=== PATIENT | male | born 1985 | race Caucasian/White ===

== ENCOUNTER 2018-07-05 11:17 | Observation (INO) ==
[~2018-07-05 11:17] MED LIST: LIDOCAINE W/ SODIUM BICARB 0.5 ML SYR ONE; LIDOCAINE W/ SODIUM BICARB 0.5 ML SYR SUBD ONE; Lactated Ringers 1,000 ML PRIMARY IV ONE; Nasal Sanitizer POPSWAB ampule 3 AMP (Nozin) PREOP DOSE ENOS SCH; ceFAZolin Inj 2gm (Premix) 2 GM/50 ML BAG IV ONE
[2018-07-05] MEDS: Lactated Ringers 1,000 ML PRIMARY IV SCH ×2 (11:37→19:18)
[2018-07-05] MEDS ORDERED: KETOROLAC 30 MG/1 ML VIAL ONE ×3 (11:59→16:31)
[2018-07-05] MEDS ORDERED: LIDOCAINE MPF 2% - 5 ML (20 MG/1 ML) ONE (11:59)
[2018-07-05] MEDS ORDERED: PROPOFOL 10 MG/1 ML (200 MG/20 ML) VIAL IV ONE ×2 (11:59→13:18)
[2018-07-05] MEDS ORDERED: LIDOCAINE W/ SODIUM BICARB 0.5 ML SYR ONE (12:00)
[2018-07-05] MEDS ORDERED: fentaNYL Inj 250 MCG/5 ML VIAL ONE (12:00)
[2018-07-05] MEDS ORDERED: Acetaminophen 1000mg Inj 1,000 MG/100 ML VIAL IV ONE (12:00)
[2018-07-05] MEDS ORDERED: DEXAMETHASONE PF 10 MG/1 ML VIAL ONE (12:00)
[2018-07-05] MEDS ORDERED: FAMOTIDINE 20 MG/2 ML VIAL IVP ONE (12:00)
[2018-07-05] MEDS ORDERED: MIDAZOLAM 5 MG/1 ML ONE (12:00)
[2018-07-05] MEDS ORDERED: LIDOCAINE 2%/ EPI 1:200,000 - 20 ML VIAL ONE (12:05)
[2018-07-05] MEDS ORDERED: BUPIVACAINE 0.5% W/ EPI - 10 ML VIAL ONE (12:05)
[2018-07-05] MEDS ORDERED: ROCURONIUM 10 MG/1 ML - 5 ML VIAL IVP ONE (12:06)
[2018-07-05] MEDS ORDERED: fentaNYL Inj 100 MCG/2 ML VIAL ONE (12:50)
[2018-07-05] MEDS ORDERED: HYDROmorphone 2 MG/1 ML ONE ×2 (13:16→17:18)
--- NOTE | 2018-07-05 13:28 | CRNA.PROCE ---
Nerve Block Documentation - - Safety Measures: Time Out Taken, Site Verified - - Type of Nerve Block Used: Left Adductor Canal Nerve Block (For post op analgesia) Position for Nerve Block: Supine Moniters Used During Block: EKG, SPO2, NIBP Oxygen Supplemented: Yes Sedation Used - Enter Amount in Comment Field [ANES.SEDAT]: Midazolam (mg): Yes (2), Fentanyl (mcg): Yes (100) Skin Prep Used: ChloroPrep Nerve Block Needle Used: EchoBright 100 mm Local Anesthetic - Enter Amt in Comment Field [ANES.LOCNB]: 0.5 % Bupivicaine with Epinephrine 1:200,000 (mL): Yes (20), 2 % Xylocaine with Epinephrine 1:200,000 (mL): Yes (20) - - PreOp Block : Time In: 12:30 PreOp Block : Time Out: 12:40
[2018-07-05] MEDS ORDERED: Lactated Ringers 1,000 ML PRIMARY IV ONE ×2 (15:09→17:40)
[2018-07-05] MEDS ORDERED: Sodium Chloride 0.9% vial 20 ML ONE (15:09)
[2018-07-05] MEDS ORDERED: REMIFENTANIL 1 MG/1 ML IV ONE (15:09)
[2018-07-05] MEDS ORDERED: TRANEXAMIC ACID 1,000 MG / 10 ML VIAL ONE (15:24)
[2018-07-05] MEDS ORDERED: BUPivacaine Liposome/PF (Exparel) Inj 20ml vial INFIL ONE (16:29)
[2018-07-05] MEDS ORDERED: BUPivacaine Inj 0.25% PF - 10ml vial ONE (16:29)
[2018-07-05] MEDS ORDERED: ceFAZolin 1 GM VIAL ONE (16:50)
[2018-07-05] MEDS ORDERED: ceFAZolin Inj 1 GM in Sodium Chloride 0.9% 100 ML IV ONE (16:52)
[2018-07-05] MEDS ORDERED: DIAZEPAM 10 MG/2 ML (5 MG/1 ML) CARPUJECT ONE (17:20)
--- NOTE | 2018-07-05 17:23 | ORTHO.OP ---
Surgery Date: 07/05/18 Preoperative Diagnosis: Patella tendon rupture left knee Postoperative Diagnosis: Same Procedure: Repair left patellar tendon rupture, augmentation with hamstring autograft Surgeon: Armond King MD Embedded Systems Software Developer: ROSENDO [place] Anesthesia Provider: Echo So CRNA Anesthesia Type: General, Regional Estimated Blood Loss (mL): 20 Fluids: 1600 mL crystalloid. Complications: None. Total tourniquet time 119 minutes. Operative Summary: Extubated awakened and taken recovery room in stable condition.
--- NOTE | 2018-07-05 17:46 | CRNA.PROGR ---
Anesthesia Time - Procedure/Recovery Time Start Date: 07/05/18 Anesthesia : Time In: 12:52 Anesthesia : Time Out: 17:23 - Block Time PreOp Block : Time In: 12:30 PreOp Block : Time Out: 12:40 - Other Weight: 93.44 kg Height: 6 ft Body Mass Index (BMI): 27.9 Physical Status: P1 Anesthesia Type: General Anesthesia : LMA
[2018-07-05] MEDS ORDERED: BISACODYL 10 MG SUPPOSITORY RECTAL PRN (18:05)
[2018-07-05] MEDS ORDERED: diphenhydrAMINE 25 MG CAPSULE PO PRN (18:05)
[2018-07-05] MEDS ORDERED: Ondansetron ODT Tab 8 MG TAB PO PRN (18:05)
[2018-07-05] MEDS ORDERED: Prochlorperazine Tab 10 MG TAB PO PRN (18:05)
[2018-07-05] MEDS ORDERED: CALCIUM CARBONATE 500 MG (TUMS) CHEWABLE TABLET PO PRN (18:05)
[2018-07-05] MEDS ORDERED: ONDANSETRON 4 MG/2 ML VIAL IVP PRN (18:05)
[2018-07-05] MEDS ORDERED: CELECOXIB 200 MG CAPSULE PO PRN (18:05)
[2018-07-05] MEDS ORDERED: BISACODYL 5 MG TABLET PO PRN (18:05)
[2018-07-05] MEDS ORDERED: MAG HYDROX/AL HYDROX/SIMETH 30 ML SUSP PO PRN (18:05)
[2018-07-05] MEDS ORDERED: ACETAMINOPHEN 325 MG TABLET PO PRN (18:05)
[2018-07-05] MEDS ORDERED: MORPHINE SULFATE 4 MG/1 ML IVP PRN (19:14)
[2018-07-05] MEDS ORDERED: KETOROLAC 30 MG/1 ML VIAL IVP PRN (19:14)
[2018-07-05] MEDS: D5-1/2NS + 20mEq KCL 1,000 ML PRIMARY IV SCH (19:56)
[2018-07-05] MEDS ORDERED: ceFAZolin Inj 2gm (Premix) 2 GM/50 ML BAG IV ONE (22:00)
[2018-07-06] MEDS: D5-1/2NS + 20mEq KCL 1,000 ML PRIMARY IV SCH ×2 (06:08→20:10)
--- NOTE | 2018-07-06 07:39 | ORTHO.PROG ---
Last Taken Vital Signs: Vital Signs - Last Taken Temperature 97.2 F 07/06/18 07:36 Pulse Rate 97 07/06/18 07:36 Respiratory Rate 16 07/06/18 07:36 Blood Pressure 122/72 07/06/18 07:36 Pulse Ox 97 07/06/18 07:36 Subjective: Patient lying in bed. Awake and alert. Not reporting much pain. Has not yet been seen by physical therapy. Has not taken any pain medication. Would like to stay today to work on physical therapy and make sure his pain doesn't get out of control once his block wears off. Objective: Vital signs stable patient afebrile. Left lower extremity brace is in place. Able to flex and extend the foot. Assessment: Impression: Stable postop day 1 from patella tendon repair. Plan: Plan: Is to keep him here today for physical therapy and make sure his pain is well-controlled. We'll probably discharge in the morning if everything goes fine today.
[2018-07-06] MEDS: oxyCODONE/APAP 7.5/325 Tab 1 TAB TAB PO PRN ×4 (08:04→21:45)
[2018-07-06] MEDS: ENOXAPARIN SODIUM 40 MG/0.4 ML SYRINGE SUBCUT SCH (09:18)
--- NOTE | 2018-07-06 16:33 | PT.PROG ---
Progress Note Progress Note: S. Patient stated he is feeling good, he reports slight pain in his leg. O. Patient ambulated 150 feet around the nurses station then 175 feet to the therapy gym where he used the upper body bike and performed upper body exercises. then ambulated 175 feet back to his room where he was left with alarm and call light. A. Patient tolerated ambulation and exercise well, he has met all goals at this time. P. Continue POC until Discharge.
--- NOTE | 2018-07-06 22:20 | PDOC(PROG) ---
General Note Progress Note: I spoke with Dr. King. He has a family emergency and asked if the hospitalist service would be willing to discharge the patient tomorrow. He has already arranged, as in Dr. King has already arranged, pain medications, DVT prophylaxis, and physical therapy and follow-up arrangements for the patient. Hospitalist service will gladly help the patient discharge. If there is any orthopedic issues that need to be addressed in the immediate term, Dr. King's partner is aware. And we will notify him if we see anything of concern at the time of discharge.
[2018-07-07] MEDS: D5-1/2NS + 20mEq KCL 1,000 ML PRIMARY IV SCH (02:27)
[2018-07-07] MEDS: oxyCODONE/APAP 7.5/325 Tab 1 TAB TAB PO PRN ×4 (04:15→18:56)
[2018-07-07] MEDS: ENOXAPARIN SODIUM 40 MG/0.4 ML SYRINGE SUBCUT SCH (08:17)
[2018-07-07] MEDS: IBUPROFEN 400 MG TABLET PO PRN ×2 (08:18→18:55)
--- NOTE | 2018-07-07 09:52 | PT.PROG ---
Progress Note Progress Note: S: Pt. states she is doing well. He is ready to go home. O: Treatment consisted functional activities: ambulating around facility with back brace donned, gait belt and SBA x 1 for safety. he then ambulated down to the therapy clinic where he performed sit to stands x 10, bilateral LE 10x each: laq, seated marches, ankle pumps and then ambulated back up to his room. Pt.was left standing in his room. A: Pt. has been up walking around in his room without assist. No LOB noted or balance deficits noted. He did attempt to bend down to use the water fountain with difficulty with bending. Did educate patient not to be bending and that he could use his cup to prevent the bending. He is ready to go home and should do fine at home with out patient therapy. P: Continue per POC unless otherwise d/c from facility. Jovita Barton, PASTE UP ARTIST
--- NOTE | 2018-07-07 10:20 | PT.PROG ---
Progress Note Progress Note: S: Pt. states he is doing well. Discussed with patient about being d/c home or to the [facility]. Patient is apprehensive about this. O: Treatment consisted of functional activities: ambulated around nursing station on even surfaces with use of crutches and gait belt for safety. Pt. then performed sit to stands x 2. Also observed patient connecting his icecooler without difficulty. Pt. left in recliner with breakfast tray in front of him, dad in his room and call button within reach. A: Pt. overall performed ambulating well. He is improving with independence. He is apprehensive about returning to the [facility] today, but physically he is independent and doing. He will have assist from instructors and roommates. He should do well with d/c. P: Continue per POC unless otherwise d/c from facility. Jovita Barton, GROCERY BAGGER
--- NOTE | 2018-07-07 11:13 | PTI REPORT ---
Thank you for the referral of Aditya Austin. He was seen on 07/06/18 for an inpatient evaluation status post left quad repair. SUBJECTIVE: The patient is a 32-year-old male. The patient reports he lives in [place] and is currently in [facility] the [employer] for his new job at the [employer] there in [place]. He states while participating with his duties at the [employer] he tripped over a mat and felt a tear in his leg which resulted in the surgery that he had yesterday of a quad repair. He states overall his pain is doing well but he is concerned about his pain increasing. He also reports that his dad is on his way from [place] to be with him. Once the patient is discharged from the hospital, his goal is to remain in the [employer] for the schooling aspect and participate as much as possible due to graduation from the [employer] being required for his job duties. PAST MEDICAL HISTORY: Past medical history can be found in the patient's medical record. OBJECTIVE FINDINGS: General observations: The patient presented in bed with a post op surgical bandage with an IROM locked in extension. Pain: The patient reported a pain level at the beginning of therapy of 2/10 on the verbal analog scale (0=no pain, 10=worst pain). The patient is unable to perform an independent straight leg raise due to pain as well as quad function. Bed mobility: The patient is able to perform bed mobility from supine to edge of bed with verbal cues of using the right lower extremity to assist the left lower extremity. Activities of daily living: The patient is able to perform dressing activities with verbal cues only. Ambulation: The patient had been using crutches prior to surgery so he was well familiar with them. He was able to perform ambulatory activities greater than 300 feet with gait belt, stand by to contact guard assistance, crutches, IROM locked at 0 degrees, and toe touch weight-bearing. The patient was able to ascend and descend 12 steps with contact guard assistance as well as verbal cues for step to gait pattern and maintaining appropriate weight-bearing status. ASSESSMENT: Problem List: Patient is post op left quadriceps repair Physical Therapy Goals: To be met by discharge from inpatient: Patient will be able to perform all bed mobility and transfers independently. Patient will give verbal understanding of brace adjustment. Patient will be able to ambulate over 100 feet. Patient will be able to ascend and descend stairs with proper weight-bearing status. TREATMENT PLAN: Patient will be seen on a PRN basis to meet the above goals. INITIAL TREATMENT: Treatment today consisted of the initial evaluation. The patient received gait training up and down stairs with crutches, toe touch weight-bearing with the IROM locked in extension. The patient was instructed on use of the [facility] Unit and was able to give verbal understanding. The patient also received education on adjusting the straps of his knee brace. The patient was able to perform toileting ADLs with modified independence with use of his crutches and his brace as well as 5 minutes of ADLs standing at the sink. At this time the patient is cleared by physical therapy to go home. Dr. King will be notified. LUCY
--- NOTE | 2018-07-07 12:33 | PDOC(PROG) ---
Interval History: Patient is doing well has no complaints no nausea no vomiting no chest pain vitals are stable no fever patient can be discharged home. As requested by Dr. King since he is on an emergency. When I talked to the patient he states he would like to stay another day I told him that I would consult with the PTOT and social insurance analyst to see if this is allowed. Medically he is stable to be discharged as well as from physical therapy according to the notes. Chart nurse called me and according to Worker's Comp. patient cannot stay another day social insurance analyst told patient he will be discharged home and following up with Dr. Armond King Objective : Exam - General General Appearance: No Acute Distress, Cooperative - Respiratory Respiratory Exam: Clear to Auscultation - Bilaterally, Breathing Non Labored, Normal To Percussion, Normal to Percussion and Palpation - Cardiovascular Cardiovascular Exam: RRR, No Murmur, No Clicks, No Gallops, No Rubs, PMI Non- Displaced - GI/Abdominal GI/Abdominal Exam: Normal Bowel Sounds, Non Tender, Non Distended, Soft, No Masses, No Hepatomegaly, No Splenomegaly, No Organomegaly Assessment and Plan - Patient Problems (1) Patellar tendon rupture Current Visit: No Status: Acute Comment: Repaired by Dr. King all postop instructions and medications were already arranged by Dr. King Code(s): S86.819A - Strain of other muscle(s) and tendon(s) at lower leg level, unspecified leg, initial encounter
--- NOTE | 2018-07-07 14:09 | ORTHO.PROG ---
Last Taken Vital Signs: Vital Signs - Last Taken Temperature 97.3 F 07/07/18 11:42 Pulse Rate 78 07/07/18 11:42 Respiratory Rate 18 07/07/18 11:42 Blood Pressure 151/73 07/07/18 11:42 Pulse Ox 94 07/07/18 11:42 Subjective: The patient seems to be doing better today his pain is controlled on oral medication is try to go 6 hours in between his dosing. Patient has taken Percocet 7.5 mg tablets 2 every 6 hours. Objective: Patient with Iceman Cryo/Cuff in place with a ROM brace locked in full extension he has good motor of the foot and ankle. Sensory exam is near completely resolved apparently sounds like he had a little tourniquet sensory issues stocking glove which are almost completely resolved. His good pulses brisk refill no marked swelling or edema. Vital Signs (24 hrs) 07/06/18 17:00 07/06/18 19:00 07/06/18 21:00 Temperature 96.9 F 98.2 F Pulse Rate [Pulse Oximeter] 81 81 75 Respiratory Rate 16 16 Blood Pressure [Right Arm] 141/88 138/83 Pulse Ox 100 100 07/06/18 23:39 07/07/18 05:00 07/07/18 08:20 Temperature 98.6 F 98.0 F 98 F Pulse Rate [Pulse Oximeter] 75 84 83 Respiratory Rate 16 16 14 Blood Pressure [Right Arm] 119/86 132/84 135/85 Pulse Ox 99 97 97 07/07/18 11:42 Temperature 97.3 F Pulse Rate [Pulse Oximeter] 78 Respiratory Rate 18 Blood Pressure [Right Arm] 151/73 Pulse Ox 94 Patient would no lower or upper thigh pain. No evidence of DVT no passive stretch issues Assessment: Patient with left patella tendon repair augmentation with hamstring graft. Plan: Patient will be discharged home today he will utilize the Percocet 7.5 mg 1-2 tablets every 4-6 hours as needed for pain. Patient will continue with anti- inflammatory agents and also anticoagulation as scheduled per Dr. King. We will have the patient follow-up at the beginning of the week for dressing change. Patient will remain nonweightbearing with crutches. Continue with the icing and cryotherapy protect the skin is noted.
[2018-07-07 15:59] VITALS: BP 143/94; RESP 16; TEMP 97.7; O2SAT 99
== END 2018-07-07 21:40 | disposition home or self-care (01) ==
LOC: OPS 11:17 → MED/SURG 11:17 → EDSTATUS 13:00 → MED/SURG 17:57 → EDSTATUS 18:58 → OR 18:58
PROVIDERS: ADMIT Orthopaedic Surgery; ATTEND Orthopaedic Surgery